=== PATIENT | female | born 1945 | race Caucasian/White ===

== ENCOUNTER 2024-08-17 08:48 | Outpatient (AMB) | payer MEDICARE, SELFPAY ==
--- NOTE | 2024-08-17 08:53 | A.OFFVIS_ITS ---
Vital Signs 08/17/24 09:09 Height 4 ft 11 in Weight 173 lb BMI 34.9 Intake Visit Reasons: [employer]-right knee pain/radiating down leg Intake Note: Peggy is an 79 year old female who presents with complaints of intermittent pain in her low back, posterior aspect of her right hip, and her right lower leg. The patient states that on 06/11/2024 she woke up with pain in her right leg. She states that she was not able to get out of bed at that time. She was seen by an orthopedic surgeon in [place]. She was given a cortisone injection into her right knee which gave her no relief of her symptoms. She denies any groin pain. She denies any locking or giving way. Allergies shellfish derived Allergy (Verified 08/17/24 09:11) Unknown contrast dye Allergy (Unknown, Uncoded 08/17/24 09:11) Unknown Medication List - Last Reconciled 08/17/24 by Robert Saunders MD apixaban (Eliquis) 5 mg PO BID atorvastatin mg PO carvedilol 12.5 mg PO BID dapagliflozin propanediol (Farxiga) 10 mg PO DAILY flecainide 50 mg PO BID [id number]-td-zo1-kur-evi-fzyy-lut-tamiko 250 mg (90 mg-160 mg) (Ocuvite Adult 50 Plus) 1 cap PO QAM omeprazole 20 mg PO DAILY spironolactone 25 mg PO DAILY torsemide 20 mg PO DAILY Physical Exam Vital Signs: BMI result Body Mass Index 34.9 Const Other: Well-nourished well-developed very friendly female awake alert and oriented x3 in no acute distress Back/Spine/Pelvis Other: Low back examination shows right-sided paraspinal muscle tenderness, pain with range of motion, positive straight leg raise test on the right at 70 degrees Extrem Other: Right hip examination shows full range of motion when compared to her left hip, minimal discomfort with range of motion Right knee examination shows a minimal effusion, minimal crepitus with range of motion, tenderness along her medial joint line, no instability Results Reviewed Results Reviewed: X-rays of the patient's right knee show mild to moderate joint space narrowing most significant in the medial compartment, no acute bony abnormalities X-rays of the patient's lumbar spine show diffuse degenerative disc disease, no acute bony abnormalities X-rays of the patient's right hip show mild joint space narrowing, no acute bony abnormalities CT scan of the patient's lumbar spine taken on 07/21/2024 shows moderate stenosis at multiple levels on the right side, no acute bony abnormalities Assessment & Plan Assessment & Plan (1) Low back pain radiating to right leg: Code(s): M54.50 - Low back pain, unspecified; M79.604 - Pain in right leg Category: Medical Plan Peggy presents with low back pain which radiates down her right leg 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 Thus, I will refer the patient to our neurosurgery department here at [facility]. She will contact me prior to that time should her symptoms worsen in any way. Feel free to call me at any time should questions regarding her orthopedic management arise. Thank you very much for asking me to see this very friendly patient. I spent 21 minutes in reviewing the patient's records and imaging studies, seeing the patient and documenting in the medical record. Orders: Orders XR lumbar spine 2-3V Today M54.50 - Low back pain, unspecified XR hip RT min 2V Today M25.551 - Pain in right hip XR knee RT 3V Today M25.561 - Pain in right knee Referrals Neuro Spine Referral M54.50 - Low back pain, unspecified, M79.604 - Pain in right leg Coding Level of Care Code New Pt Level 3 (02446) Complex EM visit Add On G2211 Diagnoses Low back pain radiating to right leg M54.50; M79.604
[2024-08-17 09:09] VITALS: BMI 34.9
--- OUTSIDE RECORDS SUMMARY | 2024-08-17 23:12 | XMS_ITS | Data Portability ---
Author Organization [place] - [facility],, LILA LAWSON MD Address [address] [address] Care Team Providers Care Associate Principal Name Role Phone PING DALY Primary Care Provider Assessment No assessment recorded. Plan of Treatment Reminders Order Date Submit Date Provider Last Modified By Organization Details Last Modified Time Details Appointments None recorded. Lab pap test, thinprep, cervical - patient is s/p hysterect ancelmo, this is a vaginal pap smear 2018 019 [facility], Cytopathology Service, [address] [place] [address], [address], 9 17:18:26 pap test, thinprep, cervical 2020 021 [email or web address] [facility], Cytopathology Service, [address] [place], [address], 1 07:42:17 Referral None recorded. Procedures therapeut ic, prophylac tic, or diagnosti c injection ; subcutane ous/intra muscular (PROC) 2017 018 [email or web address] Not available 8 08:05:40 therapeut ic, prophylac tic, or diagnosti c injection ; subcutane ous/intra muscular (PROC) 2018 019 [email or web address] Not available 9 07:25:01 Surgeries None recorded. Imaging MAMMO, screening , digital, bilateral 2018 019 [facility] Orders, [address], [place], [address], 9 12:56:27 MAMMO, screening , digital, bilateral 2020 021 [facility] Orders, [address], [address], [place], [address], 1 11:51:05 bone density 2020 021 [email or web address] [facility] Orders, [address], [address], [place], [address], 3 07:46:43 Medication Orders Prolia 60 mg/mL subcutane ous syringe 2017 [facility]18 [id number], [address], [place], [id number], 1 07:58:02 Prolia 60 mg/mL subcutane ous syringe 2017 018 [facility][id number], [address], [place], [id number], 1 07:58:02 Prolia 60 mg/mL subcutane ous syringe 2018 019 [id number], [address], [place], [id number], 1 07:58:02 clobetaso l 0.05 % topical ointment 2020 021 [facility]59865, [address], [place], [id number], 1 08:21:54 Patient TargetsNo targets recorded. Patient Instructions Encounter Date Encounter Id Patient Instructions Last Modified By Organization Details Last Modified Time 04/02/2018 [id number] advance directiv es: care instructions Not available 04/02/2018 09:24:13 osteoporosis: ca re instructions Not available 04/02/2018 08:46:51 She is here to discuss her recent bone density, of -2.2. She has a history of osteoporosis, had a T score of -2.7,in 2010, used Fosamax but had to stop due to severe gastritis, tried Miacalcin but had chronic runny nose, then used Prolia in 2012 and tolerated it quite well. She stopped in 2014 as her bone density had improved into osteopenia category., She gets adequate calcium in ehr diet but does not supplement with vitamin D. She uses a steroid inhaler but she needs to use it. Has health care proxy. Note from 2012: She is here to discuss her past history of worsening osteoporosis. She had a bone denisty in 2004 that showed a spinal T score of -2.0, it was -2.2 in 2006 and was -2.7 in 07/18. She did take Fosamax for some time but had to stop due to severe egastritis. She was switched to miacalcin for a few years but her bone density worsened while under treatment so it did not appear to be effective. She has a strong family history of osteoporosis in her mother and maternal grandmother. She would like to know what her options for treatment are, at this point. We discussed her diagnosis of osteopenia. She is drifting closer to osteoporosis now that she has been off the Prolia for a few years. Her bone density has been steadily worsening since 2012. We reviewed the results of her bone density test, with reference to the computer images. We discussed the way that standard deviation is used for diagnosis, and what this means to her as she ages. Adequate calcium intake of 1500 mg daily, weight bearing exercise three times a week, and vitamin D supplementation of at least 400 units daily is suggested. She is advised to avoid tobacco, coffee, and steroids if possible. Benefits of an active lifestyle discussed as well. All questions answered. We discussed the different forms of medical treatment for osteoporosis. She would like to restart Prolia, as she is trending back toward osteoporosis quickly since she has been off the Prolia, and she would like to get back down into toe lower part fo the osteopenia category. She will repeat the bone density testing in 2 years to assess her progress Prolia is ordered, return for injection. Return for routine annual exam as scheduled. Face to face discussion for 25 minutes. Not available 04/02/2018 09:24:24 10/06/2018 [id number] atrophic vaginit is: care instructions [email or web address] Not available 10/06/2018 08:48:44 She is here for annual exam, is doing well. She has not used the clobetasol in the past year or so for the itching of the vulva, does not feel she needs a refill at this time. She was diagnosed with Afib this past summer, is on elaquist now. Note from 2017: She is here for annual exam, is doing well. She started clobetasol for the vulva in 08/2016, uses it off and on and has good results. ____ She appears to be doing well. She is advised to get 1500 mg of calcium daily into her diet and supplements combined. We discussed the benefits of adequate vitamin D supplementation to at least 400 units daily, daily aerobic exercise of 30 minutes, and stress reduction. Monthly self breast exam was taught, and stressed, and is advised to call if she discovers any new mass in the breast. Seat belt use for herself and passengers advised. The significant health benefits of becoming and remainig fit, with an optimal BMI, were also discussed. We discussed the potential reduction in chronic discomfort, the diminished risks of hypertension, diabetes, and heart disease with the proper weight management, and improved mobility as she ages. Strategies to reach and maintain her target weight wer discussed in detail, all questions answered. Not available 10/06/2018 09:10:57 05/03/2021 [id number] atrophic vaginit is: care instructions [email or web address] Not available 05/03/2021 08:08:27 learning about healthy weight [email or web address] Not available 05/03/2021 08:08:27 She is here for annual exam, doing well. On elaquis for afib. Lat mammo 03/2019, needs mammo. Last bone density 2017, had moderate osteopenia. She had a pacemaker placed in 02/2021, My heart was stopping for too long between the beats. She needs a refill on her clobetasol. __ Note from 2019: She is here for annual exam, is doing well. She has not used the clobetasol in the past year or so for the itching of the vulva, does not feel she needs a refill at this time. She was diagnosed with Afib this past summer, is on elaquist now. She appears to be doing well. She is advised to get 1500 mg of calcium daily into her diet and supplements combined. There is a health benefit with adequate vitamin D supplementation to at least 400 units daily, daily aerobic exercise of 30 minutes, and stress reduction. Monthly self breast exam was taught, and stressed, and is advised to call if she discovers any new mass in the breast. Not available 05/03/2021 08:23:56 Reason for Referral None Reported. Results Created Date Observation Date Name Description Value Unit Range Abnormal Flag Note LastModifiedBy Organization Detail LastModifiedTime 10/06/19 19 10/06/2018 pap, LB [id number] ThinP rep Pap, Image d and Cell block : NEGAT ERIC FOR SQUAM OUS INTRA EPITH ELIAL LESIO N AND MALIG BRENDA . React eric cellu lar ho es. Atrop hy with infla mmati on and degen erati on is prese nt. Liane Cuba , CT( CP) (Case Marybel braeden 10 07 2018) Deann Campbell M.D. , Patho logis t (Case elect fahad agrawal nitza d 10 12 2018) ADEQU ACY: Satis facto ry . SOURC E: ThinP rep Pap HPV IF ASCUS , Vagin al, Image d CLINI DAVID INFOR MATIO N: HPV If Diagn osis of ASCUS . Hyste recto my, no cervi x. z12.4 Celli ent 9 Not Available [facility], Cytopathology Service [address] [place], [address], 10/12/2018 17:18:26 05/03/20 21 05/03/2021 PAP1C ASE [id number] ThinP rep Pap, Image d: NEGAT ERIC FOR SQUAM OUS INTRA EPITH ELIAL LESIO N AND MALIG BRENDA . Atrop hy. Herlinda stiles , CT( CP) (Case elect fahad agrawal nitza d 05 13 2021) ADEQU ACY: Satis facto ry . SOURC E: ThinP rep Pap HPV IF ASCUS , Vagin al, Image d CLINI DAVID INFOR MATIO N: HPV If Diagn osis of ASCUS . Z12.4 , LPS neg. Not Available [facility], Cytopathology Service [address] [place], [address], 05/14/2021 07:45:46 03/23/20 18 03/23/2018 MAMMO , ruddye naveen, digit al, bilat eral No observ ation record ed. [facility] (Outpt Imaging) [address] [place], [address], 03/23/2018 11:07:05 03/23/20 18 03/23/2018 bone densi ty No observ ation record ed. mikie [facility] [address], [place], [address], 03/24/2018 09:28:01 04/05/20 19 04/05/2019 MAMMO , scree naveen, digit al, bilat eral No observ ation record ed. [facility] Orders [address], [place], [address], 04/05/2019 13:14:53 07/16/20 21 07/16/2021 MAMMO , scree naveen, digit al, bilat eral No observ ation record ed. [facility] Orders [address], [place], [address], 07/16/2021 12:58:09 Result Notes None recorded. Problems Name Problem SNOMED Code Status Onset Date Resolution Date Notes Provider Name and Address Organization Details Recorded Time Dysuria 36262329 Active Lila Lawson MD [address], [place], [address], [place] - [facility], 5 11:09:10 Candidal vulvovagin itis 94451433 Active Lila Lawson MD [address], [place], [address], [place] - [facility], 5 11:09:10 Osteopenia 614911741 Active Lila Lawson MD [address], [place], [address], [place] - [facility], 5 11:09:10 Allergic contact dermatitis 488794793 Active 2015 She has a significan t issue with contact dermatitis , has seen a dermatolog ist nad has multiple allergies, has a long, multipage printed list of medication s that she can and can not take. Lila Lawson MD [address], [place], [address], [place] - [facility], 6 13:36:23 Degenerati ve progressiv e high myopia 72203242 Active 2017 Ivania Schumacher [place] - [facility], 8 08:26:47 Hypertensi ve disorder 84047833 Active 2018 Zo Parry [place] - [facility], 9 08:30:56 Atrial fibrillati on 30672141 Active 2018 on elaquist Lila Lawson MD [address], [place], [address], [place] - [facility], 9 08:49:40 Osteoporos is 49682749 Active Lila Lawson MD [address], [place], [address], [place] - [facility], 5 11:09:10 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 Active Lila Lawson MD [address], [place], [address], [place] [facility], 5 11:09:10 Urge incontinen ce of urine 96710457 Active Lila Lawson MD [address], [place], [address], [place] - [facility], 5 11:09:10 Lichen sclerosus et atrophicus Active Lila Lawson MD [address], [place], [address], [place] [facility], 5 11:09:10 Prolapse of urethra 31048660 Active Lila Lawson MD [address], [place], [address], [place] - [facility], 5 11:09:10 Vitamin D deficiency 37096275 Active Lila Lawson MD [address], [place], [address], [place] - [facility], 5 11:09:10 Neoplasm of bone 088313432 Active Lila Lawson MD [address] [facility],[address], [facility] [address], [place] - [facility], 5 11:09:10 Monitoring of pacemaker 81967393 Active 2020 [place] Lazcano in [facility], 1 07:59:24 Problem Notes None recorded. Procedures Surgical History Date Name Laterality Status Provider Name and Address Organization Details Recorded Time 03/23/20 18 Most Recent Bone Density completed Ivania Keenan in [facility], 04/02/2018 08:27:37 09/07/19 12 Other completed Zo Keenan in [facility], 08/18/2014 13:12:47 09/07/18 72 Hysterectomy completed Zo Keenan in [facility], 12/31/2012 09:46:05 09/07/18 65 Other completed Zo Keenan in [facility], 12/31/2012 09:46:05 Imaging Results Imaging Date Name Status LastModified by Organiz ation Details LastModified Time 03/23/2018 MAMMO, screening, digital, bilateral completed [address] (Outpt Imaging) [address] [facility], [place], [address], 03/23/2018 11:07:05 03/23/2018 bone density completed [facility] [address], [place], [address], 03/24/2018 09:28:01 04/05/2019 MAMMO, screening, digital, bilateral completed [address] [facility] Orders [address], [place], [address], 04/05/2019 13:14:53 07/16/2021 MAMMO, screening, digital, bilateral completed [address] [facility] Orders [address], [place], [address], 07/16/2021 12:58:09 Procedure Notes None recorded. Medical Equipment None Reported. Allergies Allergen ID Allergen Name Allergen Category Reaction Reaction Severity Criticality Documentation Date Start Date Code Code System Note Provider Name and Address Organization Details Recorded Time 21438 [facility] balsam environme nt,medica tion rash Not available Not available 06/25/2015 78298 RxNorm Zo Meczywor null, [place] - [facility], 5 08:09:36 28210 neomycin medicatio n rash Not available Not available 06/25/2015 7299 RxNorm Zo Meczywor null, [place] - [facility], 5 08:09:36 31735 nickel environme nt rash Not available Not available 06/25/2015 47727 29 RxNorm Zo Meczywor null, [place] - [facility], 5 08:09:36 08275 budesonid e medicatio n Not available Not available Not available 07/10/2016 59386 RxNorm Ivania Benderki null, [place] - [facility], 6 12:59:23 38972 hydrocort isone medicatio n Not available Not available Not available 07/10/2016 5492 RxNorm Ivania Schumacher null, [place] - [facility], 6 13:00:11 7961 shellfish derived food,medi cation hives Not available Not available 12/28/2012 Zo Meczywor null, [place] - [facility], 3 12:40:30 7962 Iodinated contrast media (substanc e) medicatio n hives Not available Not available 12/28/2012 77800 2003 SNOMED Zo Meczywor null, [place] - [facility], 3 12:40:30 7963 Medicinal product containin g penicilli n and acting as antibacte rial agent (product) medicatio n hives Not available Not available 12/28/2012 79135 05 DARRYL weber [place] - [facility], 3 12:40:30 Medications Name Sig Start Date Stop Date Status Note LastModified by Organization Details LastModified Time Prescriptio n - Prior Authorizati on Request APPLY THIN LAYER EXTERNALL Y TO THE AFFECTED AREA(S) TWICE DAILY 04/02 completed Not Available Not Available Not Available carvedilol 25 mg tablet TAKE 1 TABLET BY MOUTH TWICE DAILY WITH MEALS active Not Available Not Available No t Available prednisone 10 mg tablet 10/06 completed Not Available Not Available Not Available doxycycline hyclate 100 mg capsule 10/06 completed Not Available Not Available Not Available atorvastati n 20 mg tablet active Not Available Not Available Not Available carvedilol 12.5 mg tablet TAKE 1 TABLET BY MOUTH TWICE DAILY 05/03 completed Not Available Not Available Not Available trazodone 50 mg tablet active Not Available Not Available Not Available atorvastati n 10 mg tablet 10/06 completed Not Available Not Available Not Available azithromyci n 250 mg tablet active Not Available Not Available Not Available fluconazole 150 mg tablet Take 1 tablet every day by oral route at bedtime for 1 day. 07/10 completed Not Available Not Available Not Available citalopram 10 mg tablet 05/03 completed Not Available Not Available Not Available valacyclovi r 1 gram tablet TK 1 T PO TID FOR 7 DAYS 05/03 completed Not Available Not Available Not Available meloxicam 15 mg tablet 10/06 completed Not Available Not Available Not Available prednisone 20 mg tablet 04/02 completed Not Available Not Available Not Available clobetasol 0.05 % topical cream APPLY ONE APPLICATI ON EXTERNAL TO RASH TWICE A DAY NEEDED active Not Available Not Available No t Available chlorthalid one 25 mg tablet TAKE 1 TABLET BY MOUTH DAILY active Not Available Not Available No t Available amlodipine 5 mg tablet TAKE 1 TABLET BY MOUTH EVERY DAY 05/03 completed Not Available Not Available Not Available sulfamethox azole 800 mg-trimetho prim 160 mg tablet 04/02 completed Not Available Not Available Not Available triamterene 37.5 mg-hydrochl orothiazide 25 mg capsule 10/06 completed Not Available Not Available Not Available spironolact one 25 mg tablet TAKE 1 TABLET BY MOUTH DAILY 05/03 completed Not Available Not Available Not Available butalbital- acetaminoph en-caffeine 50 mg-325 mg-40 mg tablet active Not Available Not Available Not Available pantoprazol e 20 mg tablet,arturo yed release TK 1 T PO D FOR 14 DAYS 10/06 completed Not Available Not Available Not Available cephalexin 500 mg capsule 04/02 completed Not Available Not Available Not Available methylpredn isolone 8 mg tablet 05/03 completed Not Available Not Available Not Available pantoprazol e 40 mg tablet,arturo yed release active Not Available Not Available Not Available simvastatin 20 mg tablet active Not Available Not Available Not Available triamcinolo ne acetonide 0.1 % topical ointment APPLY A THIN FILM TO AFFECTED AREA TWICE DAILY NEEDED active Not Available Not Available No t Available nystatin 100,000 unit/gram topical cream 07/10 completed Not Available Not Available Not Available Synthroid 88 mcg tablet active Not Available Not Available Not Available flecainide 50 mg tablet TAKE 1 TABLET BY MOUTH TWICE DAILY active Not Available Not Available No t Available metoprolol tartrate 50 mg tablet TK 1 T PO BID WF 05/03 completed Not Available Not Available Not Available nitroglycer in 0.4 mg sublingual tablet 10/06 completed Not Available Not Available Not Available omeprazole 20 mg capsule,del ayed release 10/06 completed Not Available Not Available Not Available hydrocodone 5 mg-acetamin ophen 500 mg tablet active Not Available Not Available No t Available mupirocin 2 % topical ointment 07/10 completed Not Available Not Available Not Available furosemide 20 mg tablet 10/06 completed Not Available Not Available Not Available metoprolol succinate ER 25 mg tablet,exte nded release 24 hr active Not Available Not Available Not Available clobetasol 0.05 % topical ointment APPLY A THIN LAYER TO THE AFFECTED AREA(S) BY TOPICAL ROUTE 2 TIMES PER DAY 2020 active Not Available Not Available Not Avai lable ibuprofen 600 mg tablet 10/06 completed Not Available Not Available Not Available fluocinonid e 0.05 % topical solution 07/10 completed Not Available Not Available Not Available levofloxaci n 500 mg tablet active Not Available Not Available Not Available methylpredn isolone 4 mg tablets in a dose pack active Not Available Not Available Not Available fluocinonid e 0.05 % topical cream 10/06 completed Not Available Not Available Not Available fluticasone propionate 50 mcg/actuati on nasal spray,suspe nsion active Not Available Not Available Not Available doxycycline hyclate 100 mg tablet 04/02 completed Not Available Not Available Not Available mometasone 0.1 % topical cream APPLY TOPICALLY TWICE DAILY TO RASH ON TRUNK AND EXTERMITI ES NEEDED active Not Available Not Available No t Available Ventolin HFA 90 mcg/actuati on aerosol inhaler INHALE 2 PUFFS PO Q 4 H PTRN FOR WHEEZING active Not Available Not Available No t Available metoprolol tartrate 25 mg tablet 10/06 completed Not Available Not Available Not Available chlorhexidi ne gluconate 0.12 % mouthwash 10/06 completed Not Available Not Available Not Available calcium and magnesium carbonat 07/10 completed Not Available Not Available Not Available Symbicort 160 mcg-4.5 mcg/actuati on HFA aerosol inhaler 04/02 completed Not Available Not Available Not Available Symbicort 80 mcg-4.5 mcg/actuati on HFA aerosol inhaler INHALE 2 PUFFS BY MOUTH TWO TIMES A DAY active Not Available Not Available No t Available peg 3350 240 gram-electr olytes 22.72 gram-6.72 g-5.84 g powdr for soln active Not Available Not Available Not Available Fish Oil Freedom 3-6-9 10/06 completed Not Available Not Available Not Available Vitamin D3 50 mcg (2,000 unit) tablet Take by oral route. 05/03 completed Not Available Not Available Not Available GaviLyte-G 236 gram-22.74 gram-6.74 gram-5.86 gram oral solution 10/06 completed Not Available Not Available Not Available ProChamber USE WITH METERED DOSE INHALER active Not Available Not Available No t Available Prolia 60 mg/mL subcutaneou s syringe Inject 1 mL by subcutane ous route. 05/03 completed Not Available Not Available Not Available Eliquis 5 mg tablet TAKE 1 TABLET BY MOUTH TWICE DAILY active Not Available Not Available No t Available Spiriva Respimat 2.5 mcg/actuati on solution for inhalation INHALE 2 PUFFS BY MOUTH DAILY active Not Available Not Available No t Available Vitals Date Recorded Body height Heart rate Body mass index (BMI) Body weight Systolic blood pressure Diastolic blood pressure Provider Name and Address Organization Details Last Updated DateTime 8 152.4 cm 68 /min 32.8 kg/m2 91334.5 2 g 151 mm[Hg] 68 mm[Hg] Ivania Keenan in [facility], 8 08:21:26 Date Recorded Body height Body mass index (BMI) Body weight Heart rate Systolic blood pressure Diastolic blood pressure Provider Name and Address Organization Details Last Updated DateTime 8 152.4 cm 32.8 kg/m2 52512.5 2 g 63 /min 114 mm[Hg] 56 mm[Hg] Zo Keenan in [facility], 8 13:49:29 Date Recorded Body height Body mass index (BMI) Body weight Heart rate Systolic blood pressure Diastolic blood pressure Provider Name and Address Organization Details Last Updated DateTime 9 152.4 cm 33.2 kg/m2 60704.7 g 59 /min 130 mm[Hg] 68 mm[Hg] Zo Keenan in [facility], 9 08:24:58 Date Recorded Body height Body mass index (BMI) Body weight Provider Name and Address Organization Details Last Updated DateTime 10/07/2018 152.4 cm 33.2 kg/m2 39878.7 g Ivania Keenan in [facility], 10/07/2018 08:53:13 Date Recorded Heart rate Systolic blood pressure Diastolic blood pressure Provider Name and Address Organization Details Last Updated DateTime 10/07/2018 76 /min 127 mm[Hg] 75 mm[Hg] Zo Keenan in [facility], 10/07/2018 08:59:52 Date Recorded Body height Body mass index (BMI) Body weight Body temperature Heart rate Systolic blood pressure Diastolic blood pressure Provider Name and Address Organization Details Last Updated DateTime 1 152.4 cm 35.5 kg/m2 36331.8 1 g 97.7 [degF] 60 /min 127 mm[Hg] 72 mm[Hg] Zo Keenan in [facility], 07:54:57 Social History Question Answer Notes LastModified by Organizat ion Details LastModified Time Tobacco Smoking Status Former Smoker quit 1990 Not Available [employer] 07/10/2020 03:19:41 What Is Your Level Of Alcohol Consumption? Occasional [id number] Information not available 07/10/2020 How Many Years Have You Consumed Alcohol? 40 Information not available 05/03/2021 What Is Your Level Of Caffeine Consumption? Moderate [id number] Information not available 07/10/2020 In The 14 Days Before Symptom Onset, Have You Had Close Contact With A Laboratory-confir med COVID-19 While That Case Was Ill? No Information not available 05/03/2021 In The 14 Days Before Symptom Onset, Have You Had Close Contact With A Person Who Is Under Investigation For COVID-19 While That Person Was Ill? No Information not available 05/03/2021 Have You Been To An Area Known To Be High Risk For COVID-19? No Information not available 05/03/2021 Are You Currently Employed? No Information not available 05/03/2021 What Type Of Diet Are You Following? REGULAR [id number] Information not available 07/10/2020 Which Illicit Or Recreational Drugs Have You Used? No [id number] Information not available 07/10/2020 Do You Reside In Or Have You Traveled To An Area Where Ebola Virus Transmission Is Active? No [id number] Information not available 07/10/2020 Education 12 Information no t available 12/31/2012 What Is The Highest Grade Or Level Of School You Have Completed Or The Highest Degree You Have Received? [id number] Information not available 05/03/2021 What Is Your Occupation? Retired [id number] Information not available 07/10/2020 How Many Days In The Past Year Have You Had A Heavy Drinking Consumption (4+ Female, 5+ Male)? 0 Information no t available 07/10/2016 Are There Any Guns Present In Your Home? No Information not available 05/03/2021 High Number Of Sexual Partners No Information not available 07/10/2016 To Which Gender Do You Self-identify? Female Boujuki Information not available 07/10/2016 Marital Status Informatio n not available 12/28/2012 What Was The Date Of Your Most Recent Tobacco Screening? 10/07/2018 [id number] Information not available 07/10/2020 What Is Your Relationship Status? Information not available 05/03/2021 Are You Sexually Active? No [id number] Information not available 07/10/2020 At What Age Did You Start Smoking Tobacco? 23 Information not available 05/03/2021 How Much Tobacco Do You Smoke? No [id number] Information not available 07/10/2020 General Stress Level Medium Information not available 10/06/2018 Do You Feel Stressed (tense, Restless, Nervous, Or Anxious, Or Unable To Sleep At Night)? [id number] Information not available 05/03/2021 Do You Use Any Illicit Or Recreational Drugs? No Information not available 05/03/2021 How Many Years Have You Smoked Tobacco? 18 [id number] Information not available 07/10/2020 Have You Recently (within The Last 12 Weeks, Or During A Current ) Traveled To Or Lived In A Zika-affected Area? No Bouj[place] Information not available 07/10/2016 Do You Or Have You Ever Used Any Other Forms Of Tobacco Or Nicotine? No Information not available 05/03/2021 How Many Days In The Past Year Have You Consumed 4 Or More Drinks? 0 Information no t available 05/03/2021 Sex: Female Functional Status Question Answer Note LastModified by Organizat ion Details LastModified Time What is your exercise level? Occasional [id number] Information not available 07/10/2020 Mental Status None recorded. Family History Relationship Description Onset Age of this Age Resolved Age Notes LastModified by Organization Details LastModified Time Mother Malignant neoplastic disease gland (previ ously record ed as Cancer ) Not available 08/06/2015 11:07:23 Mother Hypercholest erolemia previo usly record ed as High Choles terol Not available 08/06/2015 11:07:23 Mother Hypertensive disorder previo usly record ed as Hypert ension Not available 08/06/2015 11:07:23 Mother Heart disease previo usly record ed as Heart Proble m Not available 08/06/2015 11:07:23 Paternal Grandmother Malignant neoplastic disease stomac h (previ ously record ed as Cancer ) Not available 08/06/2015 11:07:23 Father Heart disease previo usly record ed as Heart Proble m Not available 08/06/2015 11:07:23 Brother Disorder of thyroid gland x2 (previ ously record ed as Thyroi d Proble ms) Not available 08/06/2015 11:07:23 Medical History Condition Response Anesthesia complications N High Blood Pressure Y Candidate for MyRisk panel N Autoimmune Condition N Thyroid Problems Y Kidney or Bladder Problems N Depression N GI Problems Y Lung Disease N Defects or Inherited Disease N Anemia N History of Ovarian Cancer N History of Breast Cancer N MICHI exposure N BRCA testing in past N Osteopenia Y Psychiatric Illness N Diabetes N Anxiety Disorder N Arthritis N Headaches or Migraines Y Infertility N Asthma Y History of Cancer N Endometriosis N Hepatitis N Heart Disease Y Hypertension Y Osteoporosis N Gynecological History Statement/Question Response Menses Monthly N If Post Menopausal, Age at Menopause 27 Age at First Child 20 Most Recent Bone Density 03/23/2018 Hormone Replacement Therapy N Obstetrics History GPAL:G 4 P 1 0 3 1 Type Value Full Term 1 Spontaneous 3 Living 1 Total 4 Immunizations Vaccine Type Date Status Note Provider Nam e and Address Organization Details Recorded Time pneumococcal, unspecified formulation 4 completed MASON Lazcano in [facility], 08/18/2014 13:12:47 Influenza, split virus, trivalent, preservative 4 completed MASON Lazcano in [facility], 08/18/2014 13:12:47 COVID-19, mRNA, LNP-S, PF, 30 mcg/0.3 mL dose 1 completed MASON Lazcano in [facility], 05/03/2021 07:56:31 Past Encounters Encounter ID Performer Location Encounter Start Date Encounter Closed Date Diagnosis/Indication Diagnosis SNOMED-CT Code Diagnosis ICD10 Code [id number] LILA LAWSON MD [address] [place] [address],[place] [address] 12/31/2012 09:24:17 01/03/2013 09:45:32 [id number] Zo LAWSON MD [address] [place] [address],[place] [address] 01/21/2013 08:58:41 01/21/2013 16:08:25 [id number] Zo LAWSON MD [address] [place] [address],[place] [id number] 01/27/2013 08:59:30 01/27/2013 13:29:25 [id number] Ivania Schumacher LILA LAWSON MD [address] [place] [address],[place] [address] 03/28/2013 09:45:52 03/28/2013 16:26:54 [id number] Zo LAWSON MD [address] [place] [address],[place] [id number] 08/01/2013 08:03:53 08/01/2013 16:23:09 Osteoporosis [id number] LILA LAWSON MD [address] [place] [address],[place] [id number] 08/18/2014 12:59:42 08/18/2014 15:45:44 Screening for malignant neoplasm of cervix 963520371 Screening mammography 24 928073 Lichen scl erosus et atrophicus 16267923 Osteoporosis [id number] MD LILA Benítez MD [address] [place] [address],[place] [id number] 06/25/2015 08:00:00 06/25/2015 15:09:04 Dysuria 43076954 R30.0 Candidal vulvovaginitis 32552466 B37.3 [id number] MD LILA Benítez MD [address] [place] [address],[place] [address] 08/06/2015 10:12:02 08/06/2015 14:44:45 Osteopenia 109142419 M85.80 [id number] MD LILA Benítez MD [address] [place] [address],[facility] [place] [address] 07/10/2016 12:52:47 07/10/2016 14:01:29 Vulvitis 04383319 N76.2 Lichen scl erosus et atrophicus 52058591 L90.0 [id number] MD LILA Benítez MD [address] [place] [address],[facility] [facility] [place] [id number] 10/06/2016 10:56:41 10/06/2016 15:40:16 Screening for malignant neoplasm of cervix 270738947 Z12.4 Screening mammography 24 273539 Z12.31 Cares for self 250144338 Z76.89 [id number] MD LILA Benítez MD [address] [place] [address] [place] [address] 04/02/2018 08:11:34 04/02/2018 12:09:46 Osteoporosis 96321525 M81.0 Cares for self 478917850 Z76.89 [id number] MD LILA Benítez MD [address] [place] [address],[facility] [place] [address] 04/09/2018 13:43:49 04/09/2018 14:50:58 Osteoporosis 62518454 M81.0 [id number] MD LILA Benítez MD [address] [place] [address],[facility] [address] 10/06/2018 08:06:27 10/06/2018 12:04:47 Screening for malignant neoplasm of cervix 021162088 Z12.4 Screening mammography 24 242924 Z12.31 [id number] MD LILA Benítez MD [address] [place] [address],[facility] [address] 10/07/2018 08:50:48 10/07/2018 12:06:25 Osteoporosis 55104171 M81.0 [id number] MD LILA Benítez MD [address] [place] [address],[facility] [address] 05/03/2021 07:47:56 05/03/2021 12:37:25 Screening for malignant neoplasm of cervix 145462938 Z12.4 Screening mammography 24 413468 Z12.31 Screening for osteoporosis 317126340 N95.8 Lichen scl erosus et atrophicus 08461512 L90.0 Health Concerns Section Related Observation LastModified by Organization Detai ls LastModified Time None Recorded Concern Status LastModified by Organization Details LastModified Time None Recorded Advance Directives Directive None Recorded Payers Encounter Date Sequence Insurance Name Policy Number Policy Rodriguez Covered Member ID Rodriguez Member ID Guarantor Name 04/02/2018 1 [place] [employer] Peggy I Vaselacopoulos [id number] Peggy Vaselacopoulos 04/02/2018 2 [employer] OPTIONS (MEDICARE SUPPLEMENT) Peggy Vaselacopoulos [id number] Peggy Vaselacopoulos 04/09/2018 1 [place] [employer] [employer] Peggy I Vaselacopoulos [id number] Peggy Vaselacopoulos 04/09/2018 2 [employer] OPTIONS (MEDICARE SUPPLEMENT) Peggy Vaselacopoulos [id number] Peggy Vaselacopoulos 10/06/2018 1 [place] [employer] Peggy I Vaselacopoulos [id number] Peggy Vaselacopoulos 10/06/2018 2 [employer] OPTIONS (MEDICARE SUPPLEMENT) Peggy Vaselacopoulos [id number] Peggy Vaselacopoulos 10/07/2018 1 [place] Peggy I Vaselacopoulos [id number] Peggy Vaselacopoulos 10/07/2018 2 [employer] OPTIONS (MEDICARE SUPPLEMENT) Peggy Vaselacopoulos [id number] Peggy Vaselacopoulos 05/03/2021 1 [place] [employer] Peggy I Vaselacopoulos [id number] Peggy Vaselacopoulos 05/03/2021 2 [employer] HE[employer] OPTIONS (MEDICARE SUPPLEMENT) Peggy Vaselacopoulos [id number] Peggy Vaselacopoulos Notes Date Note Type Note Provider Name and Address Organization Details Recorded Time 04/02/2018 text/html She is here to discuss her recent bone density, of -2.2. She has a history of osteoporosis, had a T score of -2.7,in 2010, used Fosamax but had to stop due to severe gastritis, tried Miacalcin but had chronic runny nose, then used Prolia in 2012 and tolerated it quite well. She stopped in 2014 as her bone density had improved into osteopenia category., She gets adequate calcium in ehr diet but does not supplement with vitamin D. She uses a steroid inhaler but she needs to use it. Note from 2012: She is here to discuss her past history of worsening osteoporosis. She had a bone denisty in 2004 that showed a spinal T score of -2.0, it was -2.2 in 2006 and was -2.7 in 07/18. She did take Fosamax for some time but had to stop due to severe egastritis. She was switched to miacalcin for a few years but her bone density worsened while under treatment so it did not appear to be effective. She has a strong family history of osteoporosis in her mother and maternal grandmother. She would like to know what her options for treatment are, at this point. Lila Lawson MD [address], [place], [address], [employer] [facility], 04/02/2018 09:24:36 10/06/2018 text/html She is here for annual exam, is doing well. She has not used the clobetasol in the past year or so for the itching of the vulva, does not feel she needs a refill at this time. Note from 2016: She is here for annual exam, is doing well. She started clobetasol for the vulva in 08/2016, uses it off and on and has good results. Lila Lawson MD [address] [facility],[address], [place], [address], [employer] [facility], 10/06/2018 09:11:40 05/03/2021 text/html She is here for annual exam, doing well. On elaquis for afib. Lat mammo 03/2019, needs mammo. Last bone density 2017, had moderate osteopenia. She had a pacemaker placed in 02/2021, My heart was stopping for too long between the beats. She needs a refill on her clobetasol. ___ Note from 2019: She is here for annual exam, is doing well. She has not used the clobetasol in the past year or so for the itching of the vulva, does not feel she needs a refill at this time.She was diagnosed with Afib this past summer, is on elaquist now. Lila Lawson MD [address] [place] [address],[address], [place], [address], [place] [facility], 05/03/2021 08:24:18 OBGyn Episode No OBEpisode recorded.
== END 2024-08-17 09:28 | disposition home or self-care (01) ==
PROVIDERS: PCP Internal Medicine; Visit Provider Orthopaedic Surgery
DX: M54.50 Low back pain, unspecified (principal); M79.604 Pain in right leg
CPT/HCPCS: 99203; G2211

== ENCOUNTER 2024-08-17 09:18 | Outpatient (REF) | payer MEDICARE, SELFPAY ==
--- NOTE | ~2024-08-17 | XR_ITS ---
EXAMINATION: XR HIP RIGHT CLINICAL INFORMATION: Pain in right hip M25.551. COMPARISON: None available TECHNIQUE: Two views of the right hip. FINDINGS: No radiographic evidence of acute fracture. Alignment is anatomic. Hip joint space is maintained. Mild symphysis pubis degeneration. Visualized SI joints are intact. No suspicious lytic or blastic lesion. No suspicious soft tissue calcifications. XR/XR hip RT min 2V IMPRESSION: No radiographic evidence of acute osseous abnormality. Study is assigned/presented to me for interpretation on Sep 23, 2024 Electronically signed by: Jesus Alberto Du MD 09/23/2024 05:[address] [facility]
--- NOTE | ~2024-08-17 | XR_ITS ---
EXAMINATION: XR KNEE RIGHT CLINICAL INFORMATION: Pain in right knee M25.561. COMPARISON: None available TECHNIQUE: Three views of the right knee. FINDINGS: Mild-moderate medial compartment arthritis. Mild lateral and patellofemoral arthritis. No visible acute fracture or dislocation. No significant effusion. Vascular calcification. XR/XR knee RT 3V IMPRESSION: Tricompartment osteoarthritis. Study is assigned/presented to me for interpretation on Sep 23, 2024 Electronically signed by: Jesus Alberto Du MD 09/23/2024 05:10 PM [facility]
--- NOTE | ~2024-08-17 | XR_ITS ---
EXAMINATION: XR LUMBOSACRAL SPINE CLINICAL INFORMATION: Low back pain, unspecified M54.50. COMPARISON: None available TECHNIQUE: Three views of the lumbosacral spine. FINDINGS: Mild anterolisthesis of L4 on L5. Vertebral body heights are maintained. No evidence of acute fracture. Moderate-severe L5-S1 disc space narrowing. Multilevel mild spondylosis otherwise in the visualized spine. Spondylosis in the visualized lower thoracic spine, suboptimally evaluated. Nonobstructive bowel gas pattern. No suspicious soft tissue calcifications. XR/XR lumbar spine 2-3V IMPRESSION: No radiographic evidence of acute osseous abnormality. Lumbar spondylosis. L5-S1 moderate-severe disc degeneration. Study is assigned/presented to me for interpretation on Sep 26, 2024 Electronically signed by: Jesus Alberto Du MD 09/26/2024 09:06 AM [facility]
== END 2024-08-17 09:19 | disposition home or self-care (01) ==
LOC: HO.HOSX 09:18
PROVIDERS: Visit Provider Orthopaedic Surgery
DX: M25.551 Pain in right hip (principal); M54.50 Low back pain, unspecified; M25.561 Pain in right knee
CPT/HCPCS: 72100; 73502; 73562; 99202

== ENCOUNTER 2024-08-22 10:28 | Outpatient (AMB) | payer MEDICARE, SELFPAY ==
--- NOTE | 2024-08-22 10:42 | HO.SPINEOV ---
Vital Signs 08/22/24 10:52 Height 4 ft 11 in Weight 172 lb BMI 34.7 Intake Visit Reasons: LBP Intake Note: Ms. Marroquin is here today c/o low back pain. Tax Manager Required: No Allergies shellfish derived Allergy (Verified 08/22/24 10:53) Unknown contrast dye Allergy (Unknown, Uncoded 08/17/24 09:11) Unknown Physical Exam Vital Signs: BMI result Body Mass Index 34.7 Assessment & Plan Assessment & Plan (1) Low back pain radiating to right leg: Code(s): M54.50 - Low back pain, unspecified; M79.604 - Pain in right leg Category: Medical Plan Dear DR Saunders, Thank you for referring MRs Marroquin to our office today. She is a very nice 79-year-old female presents to the office today for evaluation of a right leg pain which started on June 10 when she was at the theater. She was sitting in an awkward seat that was little bit cramped and when she got up and was walking back to the car she noticed pain in her medial tibial region radiating down to her medial ankle. By the next morning the pain was so severe she was almost in tears and could barely move. Over the course of about 3 weeks it was so intense that she describes it as being worse than childbirth. Eventually it subsided went away. She did undergo a number of different workups and tests. She ended up getting a cortisone injection in her knee which really did not do much. Ultimately she ended up with a lumbar CT that [facility] showing foraminal stenosis and spondylolisthesis at L4-5. She was referred to us for an evaluation after having excluded her knee as a source for the pain. PMH: History of coronary disease, history of heart failure, pacemaker for AFib with RVR, history of asthma, COPD, osteoporosis, hypothyroidism, GERD, high cholesterol, hypertension Social hx: She does not smoke, she is not drink use any recreational drugs Medications: Eliquis, atorvastatin, carvedilol, Farxiga, flecainide, omeprazole, torsemide, spironolactone Allergies: Shellfish Physical exam: Awake alert oriented no acute distress, she will stand up out of a chair and walk mobilize on her own with no acute distress. Strength reflexes otherwise normal. Imaging review: There is a lumbar CT from [facility] which I was unable to load into our system, but per the report it shows a grade 1 spondylolisthesis with foraminal stenosis at L4. She had x-rays done here at [facility] and this confirmed she has a grade 1 spondylolisthesis L4-5, with some mild degenerative changes otherwise. Impression: 79-year-old female who appears to have had an L4 radiculopathy that has resolved itself. At this time, her CT scan is showing some moderate disc degeneration with a spondylolisthesis at L4-5. Since she is feeling better, there is no need for surgery or intervention. She does not need physical therapy. She has no restrictions or limitations. We did discuss the natural history of lumbar stenosis. If she gets recurrent symptoms she will come back and see us. Thank you for allowing us to care for your patient. The total time spent with this visit with this patient was 45 minutes reviewing history, physical exam, lumbar imaging review, and implementation of treatment plan or further diagnostic testing Perez Chirinos MD,PhD [facility] Coding Level of Care Code New Pt Level 4 (50767) Diagnoses Low back pain radiating to right leg M54.50; M79.604
[2024-08-22 10:52] VITALS: BMI 34.7
== END 2024-08-22 11:20 | disposition home or self-care (01) ==
PROVIDERS: PCP Internal Medicine; Referring Provider Orthopaedic Surgery; Visit Provider Physician Assistant
DX: M54.50 Low back pain, unspecified (principal); M79.604 Pain in right leg
CPT/HCPCS: 99204

== ENCOUNTER → 2024-08-22 10:28 | Outpatient (BNVA) | payer MEDICARE, SELFPAY | PROVIDERS: PCP Internal Medicine; Referring Provider Orthopaedic Surgery; Visit Provider Physician Assistant | DX: M79.604 Pain in right leg (principal); M54.50 Low back pain, unspecified | CPT/HCPCS: 99202 ==